=== PATIENT | male | born 1945 | race Caucasian/White ===

== ENCOUNTER 2017-05-03 11:13 | Inpatient (IN) | payer MEDICARE, BC ==
[~2017-05-03 11:13] MED LIST: ISOVUE-370 76%-LOCM 1 ML ONE
--- NOTE | 2017-05-03 11:59 | RAD ---
UPRIGHT PORTABLE CHEST ONE VIEW: History: 71-year-old male with weakness. FINDINGS: Inspiration is poor. Monitor leads overlie the chest. Heart size is within normal limits. The lungs a re clear. Atherosclerosis of the aorta. IMPRESSION: Atherosclerosis of the aorta. No confluent pneumonia, overt edema, or pleural effusion or other acute process. POS: [facility]
[2017-05-03 12:06] LABS: #Lymphocytes 0.6 thou/uL (1.20-3.40); #Monocytes 1.2 thou/uL (0.11-0.59); #Neutrophils 13.8 thou/uL (1.40-6.50); %Basophils 0.3 % (0.0-1.0); %Eosinophils 0.2 % (0.0-10.0); %Lymphocytes 3.7 % (21.0-51.0); %Monocytes 7.7 % (0.0-10.0); Hematocrit 42.7 % (42.0-52.0); Mean Platelet Volume 7.7 fL (7.4-10.4); Red Blood Cell (RBC) Count 4.39 mill/uL (4.70-6.10); White Blood Cell (WBC) Count 15.6 thou/uL (4.8-10.8)
[2017-05-03 12:12] LABS: Lactic Acid - Sepsis 1.9 mmol/L (0.5-2.2)
[2017-05-03 12:28] LABS: ALT (SGPT) Less than 7 U/L (8-55); AST (SGOT) 18 U/L (5-34); Alkaline Phosphatase 46 U/L (40-150); Anion Gap 13 mmol/L (10-20); BUN (Urea Nitrogen) 24 mg/dL (8.4-25.7); Bilirubin, Total 0.8 mg/dL (0.2-1.2); Calc. Creatinine Clearance 0 mL/min (70-130); Calcium 9.1 mg/dL (7.8-10.44); Carbon Dioxide 23 mmol/L (23-31); Chloride 103 mmol/L (98-107); Estimated GFR-MDRD 60; Globulin 2.7 g/dL (2.4-3.5); Protein, Total 6.6 g/dL (5.8-8.1)
[2017-05-03] MEDS ORDERED: Acetaminophen 500 MG TAB ONE (12:41)
--- NOTE | 2017-05-03 13:56 | CT ---
CONTRAST ENHANCED CT IMAGES OF THE FACIAL BONES: TECHNIQUE: Axial image are obtained with coronal and sagittal reconstructions. FINDINGS: Dental amalgam and hardware obscure some of the soft tissue and bony detail due to beam hardening. No obvious evidence of mandibular fractures or lesions is seen. No evidence of maxillary lesions is seen There does appear to be an area of lucency surrounding the right second maxillary incisor, claudia g its root. This may represent a possible right second incisor maxillary periapical dental abscess. The sinuses are well aerated. IMPRESSION: Area of lucency surrounding the root of the second right maxillary incisor. POS: [facility]
[2017-05-03 15:17] LABS: Bilirubin Small (Negative); Blood, Urine Negative (Negative); Glucose, Urine (Dipstick) Negative (Negative); Ketone, Urine Trace mg/dL (Negative); Nitrite Negative (Negative); Protein, Urine (Dipstick) Trace mg/dL (Neg-Trace); Urobilinogen 0.2 mg/dL (0.2-1.0)
--- NOTE | 2017-05-03 16:04 | HP ---
PRIMARY CARE PHYSICIAN: Sukhjinder Groves M.D. REASON FOR ADMISSION: Sepsis. HISTORY OF PRESENT ILLNESS: A 71-year-old male, who has underlying history of hypertension, diabetes type 2, dyslipidemia, Parkinson's disease, who presented to the emergency room for evaluation of hig h grade fever, chills, and generalized weakness. The patient reports that this morning he was schedu led for dental procedure in dentist's office, but patient appeared very weak and sick and that is why procedure was canceled, and he was directed to go to the emergency room for evaluation. In the emergency room, patient was having fever of 103.1, and he was hypotensive, and routine blood t ests showed leukocytosis with left shift. His chest x-ray was normal. His influenza screen is negat kim. He had CT facial bones, which showed a lucency around root of the second right maxillary inciso r. Patient denies any constipation, diarrhea. He denies any antibiotic exposure. He denies any abd ominal pain. He denies any constipation, diarrhea, melena, hematochezia. He denies any UTI symptoms . He denies any flu-like illness. He denies any sick exposure or recent travel. He denies any sore throat. Patient reports that this morning when he woke up at that time he was not feeling good. He fell down at home and after that he was having very difficulty standing up. He did not injure anywhere. The patient also reports that he has redness in the right lower extremity, which increases and decreases, but he denies any pain in the right lower extremity. He denies any calf tenderness. He denies any trauma. Patient is following neurologist and oncologists at [facility]. Initially, patient req uested to go to [facility], but because the patient's blood pressure was running low and that is why paramedics sent him to [facility]. I spoke with Dr. Del Fernandez, and he was not thinking that the dental abscess was contributing to his high grade fever. REVIEW OF SYSTEMS: The following complete review of systems was negative, unless otherwise mentioned in the HPI or below: Constitutional: Weight loss or gain, ability to conduct usual activities. Skin: Rash, itching. Eyes : Double vision, pain. ENT/Mouth: Nose bleeding, neck stiffness, pain, tenderness. Cardiovascular: Palpitations, dyspnea on exertion, orthopnea. Respiratory: Shortness of breath, wheezing, cough, hem optysis, fever or night sweats. Gastrointestinal: Poor appetite, abdominal pain, heartburn, nausea, vomiting, constipation, or diarrhea. Genitourinary: Urgency, frequency, dysuria, nocturia. Musculos keletal: Pain, swelling. Neurologic/Psychiatric: Anxiety, depression. Allergy/Immunologic: Skin reji h, bleeding tendency. Please see my HPI for pertinent positives and negatives. All other review of systems reviewed and ne gative except as mentioned in the HPI. ALLERGIES: No known drug allergies. CURRENT HOME MEDICATIONS: Aspirin 81 mg p.o. daily, carbidopa/levodopa 25/100 two tablets three time s daily, glipizide extended release 5 mg p.o. daily, lisinopril 10 mg p.o. daily, metformin 500 mg tw ice daily, Zocor 20 mg p.o. at bedtime, primidone 50 mg twice daily, trihexyphenidyl 2 mg twice daily , pramipexole 0.25 mg 3 times daily, propranolol LA 80 mg p.o. daily, Actos 30 mg p.o. daily, Michaelle 180 mg p.o. daily. PAST MEDICAL HISTORY: Diabetes type 2, hypertension, dyslipidemia, Parkinson's disease, morbid obesi ty, follicular lymphoma, on chemotherapy. PAST SURGICAL HISTORY: Cataract surgery from left eye, cholecystectomy, tonsillectomy. PAST PSYCHIATRIC HISTORY: Reviewed and negative. SOCIAL HISTORY: Patient is and lives at home with his . No history of tobacco, alcohol, or illicit drug abuse. FAMILY HISTORY: No strong family history of premature coronary artery disease, stroke, or cancer. EMERGENCY ROOM COURSE: Patient had blood culture and urine culture done, and the patient is given va ncomycin 1 gram, IV fluid 2 liter, and Tylenol 1 gram. PHYSICAL EXAMINATION: VITAL SIGNS: On arrival, blood pressure 107/59, pulse 74, respiratory rate 28, temperature 103.1, sa turation 96% on room air, weight 154.2 kilograms. GENERAL: Patient is currently alert, awake, no obvious acute distress. HEAD: Normocephalic, atraumatic. EYES: Pupils round, reactive to light. Extraocular muscles intact. ENT: Oropharynx within normal limits. Moist mucous membranes. No oral lesions. No pharyngeal eryt ba, no exudate. No JVD, no thyromegaly, no carotid bruit. LUNGS: Clear to auscultation, air entry reduced at the bases, but no rales, no wheezing, no rhonchi. CARDIAC: S1, S2 regular. No murmur, no gallop, no rub. ABDOMEN: Morbid obesity limiting examination, but no organomegaly, no mass, no suprapubic tenderness . BACK: Unremarkable, no CVA tenderness. EXTREMITIES: Upper extremity, passive movement of all joints are normal. Lower extremity, patient d oes have chronic venous stasis changes bilaterally, more worse on the right side. Erythema, warmth n oted on the right side. Good distal pulsation. NEUROLOGIC: The patient does have parkinsonian tremor, but patient is moving all four limbs. Speech normal. Nonfocal neurological examination. SKIN: No skin rash other than stasis dermatitis changes in right lower extremity. PSYCHIATRIC: Normal affect. ORAL CAVITY: The patient does have mild tenderness on the right maxilla on deep palpation, but no ob vious erythema noted or any drainage of pus noted. 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 CT faci al bone showing an area of lucency surrounding to the root of the right second maxillary incisor. Ch est x-ray showing no acute cardiopulmonary process. CBC: WBC 15.6, hemoglobin 14.3, platelet 165 wi th left shift. BMP: Sodium 134, potassium 4.7, chloride 103, carbon dioxide 23, anion gap 13, BUN 2 4, creatinine 1.19, glucose 149, calcium 9.1. Lactic acid 1.9. LFT: AST 18, ALT less than 7, alkaline phosphatase 46, albumin 3.9. ASSESSMENT AND PLAN: 1. Sepsis. The patient meets sepsis criteria with leukocytosis with left shift, high grade fever, a nd relative hypotension. Source of infection is unclear exactly but suspecting from 3 different etio logy. One is a possibility of dental abscess based on CT scan finding as well as another possibility is cellulitis of right lower extremity, and third possibility is possible urinary tract infection. At this point, CT of facial bones showed area of lucency surrounding the root of the second right max illary incisor, and I spoke with Dr. Del Fernandez, who is a dentist, was going to do procedure on h im, and he was not thinking that this patient's dental process is causing this high grade fever, and he prefers surgical intervention in his office after discharge. The patient will be given vancomycin and Zosyn, that should cover dental abscess as well as cellulitis, and we are sending urine culture and urinalysis. We will follow up on all culture result, his influenza screen is negative. We will also continue slow IV fluid and will avoid antihypertensive medication. We will closely monitor on m edical floor and will follow up on culture result and consider discharging him home in the next day o r two. 2. Dental abscess. The patient is already on vancomycin and Zosyn, and I spoke with Dr. Del yap, who prefers surgery to be done in his office after stabilization. 3. Right lower extremity cellulitis. Patient is already on vancomycin and Zosyn. We will keep lowe r extremity elevated. Most likely, he also has part of stasis dermatitis, but underlying cellulitis is also possible given high grade fever and sepsis. 4. Morbid obesity. Dietary education given, weight loss education given. 5. Generalized weakness, acute. The patient will need PT, OT evaluation, and if needed, we will con tutoring clinician discharge planning with the rehab or skilled if needed only. At home, the patient is able to a mbulate by himself, and he is able to do all routine activities by himself up until today. 6. Parkinson's disease. I will continue patient's carbidopa/levodopa, trihexyphenidyl, pramipexole, Inderal LA as per home dosage. We will also continue primidone 150 mg twice daily. 7. Diabetes type 2. We will continue glipizide XL 5 mg and metformin 500 mg twice daily along with insulin as per sliding scale protocol, and diabetic diet will be given. 8. Dyslipidemia. We will continue Zocor 20 mg p.o. at bedtime. 9. History of hypertension, but currently low blood pressure and that is why we will hold on antihyp ertensive medication. We will resume lisinopril and Inderal LA when blood pressure improves. 10. Deep venous thrombosis prophylaxis. Lovenox 40 mg subcu daily. 11. Gastrointestinal prophylaxis, Pepcid 20 mg p.o. b.i.d. 12. Code status: The patient is FULL CODE. The patient's is surrogate decision maker. Disposition plan based on clinical course. At this point, we are expecting [facility] mid[facility]. Plan of care discussed with the patient and family member at bedside in the emergency room. Condition is stable.
[2017-05-03 16:51] VITALS: BMI 43.5
[2017-05-03] MEDS ORDERED: Ondansetron HCl/PF 4 MG/2 ML Vial IVP PRN ×2 (17:00→17:05)
[2017-05-03] MEDS ORDERED: Ondansetron ODT 4 MG TAB SL PRN (17:00)
[2017-05-03] MEDS ORDERED: Acetaminophen 325 MG TAB PO PRN ×2 (17:00→17:05)
[2017-05-03] MEDS ORDERED: Zolpidem Tartrate 5 MG TAB PO PRN (17:05)
[2017-05-03] MEDS ORDERED: Ondansetron ODT 4 MG TAB PO PRN (17:05)
[2017-05-03] MEDS ORDERED: HYDROcodone/Acetaminophen 5/325 mg Tablet PO PRN (17:05)
[2017-05-03] MEDS ORDERED: Senokot 8.6 MG TAB PO PRN (17:05)
[2017-05-03] MEDS ORDERED: Loratadine 10 MG TAB PO PRN (17:05)
[2017-05-03] MEDS ORDERED: HumaLOG 300 UNITS/3 ML VIAL SC PRN ×2 (17:05)
[2017-05-03] MEDS ORDERED: hydrALAZINE 20 MG/ML VIAL SLOW IVP PRN (17:05)
[2017-05-03] MEDS ORDERED: Artificial Tear Sol 15 ML BOT EA EYE PRN (17:05)
[2017-05-03] MEDS ORDERED: Loperamide HCl 2 MG CAP PO PRN (17:05)
[2017-05-03] MEDS ORDERED: Sodium Chloride 0.65% Nasal 44 ML BOT EA NARE PRN (17:05)
[2017-05-03] MEDS ORDERED: Chloraseptic Spray 180 ml Bottle PO PRN (17:05)
[2017-05-03] MEDS ORDERED: Milk Of Magnesia 30 ML UDCUP PO PRN (17:05)
[2017-05-03] MEDS ORDERED: Dextrose 50% Abboject 50 ML SYRINGE SLOW IVP PRN (17:05)
[2017-05-03] MEDS ORDERED: Diabetic Tussin 200 MG/10 ML UDCUP PO PRN (17:05)
[2017-05-03] MEDS ORDERED: Dextrose 5% in Water 1,000 ML IV PRN (17:05)
[2017-05-03] MEDS ORDERED: Eucerin (Mineral Oil/Petrolatum,White) 30 gm Jar TOP PRN (17:05)
[2017-05-03] MEDS ORDERED: Mag-Al 1200 mg/1200 mg/30 ML UDCUP PO PRN (17:05)
[2017-05-03] MEDS ORDERED: metFORMIN 500 MG TAB PO SCH (18:00)
[2017-05-03] MEDS: Sodium Chloride 0.9% 1,000 ML IV SCH (18:30)
[2017-05-03] MEDS: Simvastatin 20 MG TAB PO SCH (20:24)
[2017-05-03] MEDS: Primidone 50 MG TAB PO SCH (20:24)
[2017-05-03] MEDS: Famotidine 20 MG TAB PO SCH (20:24)
[2017-05-03] MEDS: Pramipexole Di-HCl 0.125 MG TAB PO SCH (20:24)
[2017-05-03] MEDS: Carbidopa/Levodopa 25-100 mg Tablet PO SCH (20:24)
[2017-05-03] MEDS: Piperacillin/Tazobactam 4.5 GM in Sodium Chloride 0.9% 100 ML IVPB SCH (22:04)
[2017-05-04] MEDS: Piperacillin/Tazobactam 4.5 GM in Sodium Chloride 0.9% 100 ML IVPB SCH ×4 (01:57→19:34)
[2017-05-04 05:16] LABS: #Monocytes 0.9 thou/uL (0.11-0.59); #Neutrophils 6.9 thou/uL (1.40-6.50); %Basophils 0.3 % (0.0-1.0); %Eosinophils 0.2 % (0.0-10.0); %Lymphocytes 11.6 % (21.0-51.0); %Monocytes 10.6 % (0.0-10.0); Hematocrit 38.2 % (42.0-52.0); Red Blood Cell (RBC) Count 3.89 mill/uL (4.70-6.10); White Blood Cell (WBC) Count 8.9 thou/uL (4.8-10.8)
[2017-05-04 05:58] LABS: ALT (SGPT) Less than 7 U/L (8-55); AST (SGOT) 17 U/L (5-34); Alkaline Phosphatase 33 U/L (40-150); Anion Gap 11 mmol/L (10-20); BUN (Urea Nitrogen) 23 mg/dL (8.4-25.7); Bilirubin, Total 0.8 mg/dL (0.2-1.2); Calc. Creatinine Clearance 148 mL/min (70-130); Calcium 8.4 mg/dL (7.8-10.44); Carbon Dioxide 22 mmol/L (23-31); Chloride 105 mmol/L (98-107); Estimated GFR-MDRD 75; Globulin 2.3 g/dL (2.4-3.5); Protein, Total 5.7 g/dL (5.8-8.1)
[2017-05-04] MEDS: Sodium Chloride 0.9% 1,000 ML IV SCH ×2 (06:23→13:50)
[2017-05-04] MEDS: Enoxaparin Sodium 40 MG/0.4 ML SYRINGE SC SCH (07:22)
[2017-05-04] MEDS: Pioglitazone HCl 15 MG TAB PO SCH (07:23)
[2017-05-04] MEDS: Primidone 50 MG TAB PO SCH ×2 (07:24→08:29)
[2017-05-04] MEDS: Pramipexole Di-HCl 0.125 MG TAB PO SCH (07:24)
[2017-05-04] MEDS: Carbidopa/Levodopa 25-100 mg Tablet PO SCH ×2 (07:24→08:29)
[2017-05-04] MEDS: Famotidine 20 MG TAB PO SCH ×2 (07:25→19:35)
[2017-05-04] MEDS: Saccharomyces boulardii 250 MG CAP PO SCH (07:25)
[2017-05-04] MEDS: metFORMIN 500 MG TAB PO SCH ×2 (07:25→17:33)
[2017-05-04] MEDS ORDERED: SODIUM FLUORIDE PO SCH (09:00)
--- NOTE | 2017-05-04 11:11 | PDOC.PN ---
- Subjective Encounter Start Date: 05/04/17 Encounter Start Time: 07:45 -: old records requested/rev Patient seen and examined. No new complaints. No overnight events, no fever - Objective Resuscitation Status: Resuscitation Status FULL:Full Resuscitation MAR Reviewed: Yes Vital Signs & Weight: Vital Signs (12 hours) Temp Pulse Resp BP Pulse Ox 05/04/17 08:00 98.7 F 59 L 22 H 112/62 98 05/04/17 02:00 98.7 F 65 20 117/46 L Weight Weight 339 lb 8.19 oz I&O: 05/03/17 05/04/17 05/05/17 06:59 06:59 06:59 Intake Total 2320 360 Balance 2320 360 Result Diagrams: 05/04/17 04:48 05/04/17 04:48 Additional Labs: Accuchecks 05/04/17 05/03/17 06:16 21:02 POC Glucose 84 95 Phys Exam - Physical Examination Constitutional: NAD HEENT: PERRLA, moist MMs, sclera anicteric Neck: no JVD, supple Respiratory: no wheezing, no rales, no rhonchi Cardiovascular: RRR, no significant murmur, no rub Gastrointestinal: soft, non-tender, no distention, positive bowel sounds obesity+ Musculoskeletal: pulses present right LE cellulitis Neurological: non-focal, normal sensation Psychiatric: normal affect, A&O x 3 Skin: no rash, normal turgor Dx/Plan (1) Cellulitis of right lower extremity Code(s): L03.115 - CELLULITIS OF RIGHT LOWER LIMB Status: Acute (2) Dental abscess Code(s): K04.7 - PERIAPICAL ABSCESS WITHOUT SINUS Status: Acute (3) Sepsis Code(s): A41.9 - SEPSIS, UNSPECIFIED ORGANISM Status: Acute (4) Diabetes type 2, controlled Code(s): E11.9 - TYPE 2 DIABETES MELLITUS WITHOUT COMPLICATIONS Status: Chronic (5) Dyslipidemia Code(s): E78.5 - HYPERLIPIDEMIA, UNSPECIFIED Status: Chronic (6) Hypertension Code(s): I10 - ESSENTIAL (PRIMARY) HYPERTENSION Status: Chronic (7) Morbid obesity with BMI of 40.0-44.9, adult Code(s): E66.01 - MORBID (SEVERE) OBESITY DUE TO EXCESS CALORIES; Z68.41 - BODY MASS INDEX (BMI) 40.0-44.9, ADULT Status: Chronic (8) Parkinson disease Code(s): G20 - PARKINSON'S DISEASE Status: Chronic - Plan cont current plan of care, continue antibiotics, PT/OT * continue vancomycin and zosyn * continue IVF * hold BP meds today * follow culture today * if afebrile and culture negative and doing ok with PT, will consider discharge in next 24-48 hours * medication reviewed as below * symptomatic treatment. Review of Systems - Review of Systems Constitutional: Weakness. negative: Fever, Chills, Sweats, Malaise, Other ENT: negative: Ear Pain, Ear Discharge, Nose Pain, Nose Discharge, Nose Congestion, Mouth Pain, Mouth Swelling, Throat Pain, Throat Swelling, Other Respiratory: negative: Cough, Dry, Shortness of Breath, Hemoptysis, SOB with Excertion, Pleuritic Pain, Sputum, Wheezing Cardiovascular: negative: Chest Pain, Palpitations, Orthopnea, Paroxysmal Noc. Dyspnea, Edema, Light Headedness, Other Gastrointestinal: negative: Nausea, Vomiting, Abdominal Pain, Diarrhea, Constipation, Melena, Hematochezia, Other Genitourinary: negative: Dysuria, Frequency, Incontinence, Hematuria, Retention , Other Musculoskeletal: negative: Neck Pain, Shoulder Pain, Arm Pain, Back Pain, Hand Pain, Leg Pain, Foot Pain, Other Skin: negative: Rash, Lesions, Job, Bruising, Other - Medications/Allergies Allergies/Adverse Reactions: Allergies Allergy/AdvReac Type Severity Reaction Status Date / Time No Known Drug Allergies Allergy Verified 05/03/17 17:10 Medications: Current Medications Acetaminophen (Tylenol) 650 mg PO Q4H PRN PRN Reason: Headache/Fever or Pain Hydrocodone Bitart/Acetaminophen ([place] 5/325) 1 tab PO Q4H PRN PRN Reason: Moderate Pain (4-6) Al Hydroxide/Mg Hydroxide (Maalox) 30 ml PO Q6H PRN PRN Reason: Heartburn or Indigestion Artificial Tears (Tears Renewed 15ml Bottle) 0 drop EA EYE PRN PRN PRN Reason: Dry Eyes Aspirin (Aspirin Chewable) 81 mg PO DAILY [facility] Last Admin: 05/04/17 07:25 Dose: 81 mg Carbidopa/Levodopa (Sinemet 25-100) 1 tab PO DAILY [facility] Last Admin: 05/04/17 08:29 Dose: Not Given Dextrose/Water (Dextrose 50%) 25 gm SLOW IVP PRN PRN PRN Reason: Hypoglycemia Enoxaparin Sodium (Lovenox) 40 mg SC 0900 [facility] Last Admin: 05/04/17 07:22 Dose: 40 mg Famotidine (Pepcid) 20 mg PO BID [facility] Last Admin: 05/04/17 07:25 Dose: 20 mg Glipizide (Glucotrol Xl) 5 mg PO QA[facility] Last Admin: 05/04/17 07:25 Dose: 5 mg Glucagon (Glucagon) 1 mg IM PRN PRN PRN Reason: Hypoglycemia Guaifenesin (Robitussin Sf) 200 mg PO Q4H PRN PRN Reason: Cough Hydralazine HCl (Apresoline) 10 mg SLOW IVP Q4H PRN PRN Reason: Systolic BP > 180 Dextrose/Water (D5w) 1,000 mls @ 0 mls/hr IV .Q0M PRN; As Directed PRN Reason: Hypoglycemia Sodium Chloride (Normal Saline 0.9%) 1,000 mls @ 100 mls/hr IV .Q10H [facility] Last Admin: 05/04/17 06:23 Dose: Not Given Piperacillin Sod/Tazobactam (Sod 4.5 gm/ Sodium Chloride) 100 mls @ 200 mls/hr IVPB 0200,0800,1400,2000 [facility] Last Admin: 05/04/17 07:21 Dose: 100 mls Vancomycin HCl 2 gm/ Sodium (Chloride) 500 mls @ 250 mls/hr IVPB 0800,2000 [facility] Last Admin: 05/04/17 08:30 Dose: 500 mls Insulin Human Lispro (Humalog) 0 units SC .MODERATE SLIDING SC PRN PRN Reason: Moderate Correctional Scale Insulin Human Lispro (Humalog) 0 units SC .BEDTIME SLIDING SC PRN PRN Reason: Bedtime Correctional Scale Loperamide HCl (Imodium) 2 mg PO PRN PRN PRN Reason: Diarrhea/Loose Stools Loratadine (Claritin) 10 mg PO DAILYPRN PRN PRN Reason: Sinus Symptoms Magnesium Hydroxide (Milk Of Magnesium) 30 ml PO DAILYPRN PRN PRN Reason: Constipation Metformin HCl (Glucophage) 500 mg PO BID-[facility] Last Admin: 05/04/17 07:25 Dose: 500 mg Mineral Oil/White Petrolatum (Eucerin Cream) 0 gm TOP BIDPRN PRN PRN Reason: Dry Skin Miscellaneous Medication (Pharmacy To Dose) 1 each IVPB PRN PRN PRN Reason: Pharmacy to dose Ondansetron HCl (Zofran Odt) 4 mg PO Q6H PRN PRN Reason: Nausea/Vomiting Ondansetron HCl (Zofran) 4 mg IVP Q6H PRN PRN Reason: Nausea/Vomiting [Prevident Paste] 1 (Applic) 0 each PO BID [facility] Phenol (Chloraseptic [place] 180 Ml Bot) 0 ml PO PRN PRN PRN Reason: Sore Throat Pioglitazone HCl (Actos) 30 mg PO DAILY [facility] Last Admin: 05/04/17 07:23 Dose: 30 mg Primidone (Mysoline) 50 mg PO DAILY [facility] Last Admin: 05/04/17 08:29 Dose: Not Given Saccharomyces Boulardii (Florastor) 250 mg PO DAILY [facility] Last Admin: 05/04/17 07:25 Dose: 250 mg Senna (Senokot) 2 tab PO HSPRN PRN PRN Reason: Constipation Simvastatin (Zocor) 20 mg PO [facility] Last Admin: 05/03/17 20:24 Dose: 20 mg Sodium Chloride ([place] Nasal [place] 0.65%) 0 ml EA NARE QIDPRN PRN PRN Reason: Nasal Congestion Zolpidem Tartrate (Ambien) 5 mg PO HSPRN PRN PRN Reason: Insomnia
[2017-05-04] MEDS: Simvastatin 20 MG TAB PO SCH (19:35)
[2017-05-05] MEDS: Piperacillin/Tazobactam 4.5 GM in Sodium Chloride 0.9% 100 ML IVPB SCH ×4 (02:50→20:55)
[2017-05-05] MEDS: Saccharomyces boulardii 250 MG CAP PO SCH (08:31)
[2017-05-05] MEDS: Carbidopa/Levodopa 25-100 mg Tablet PO SCH ×3 (08:31→20:53)
[2017-05-05] MEDS: Primidone 50 MG TAB PO SCH (08:31)
[2017-05-05] MEDS: Famotidine 20 MG TAB PO SCH ×2 (08:31→20:53)
[2017-05-05] MEDS: Pioglitazone HCl 15 MG TAB PO SCH (08:32)
[2017-05-05] MEDS: metFORMIN 500 MG TAB PO SCH (08:32)
[2017-05-05] MEDS: Enoxaparin Sodium 40 MG/0.4 ML SYRINGE SC SCH (08:33)
[2017-05-05] MEDS: Sodium Chloride 0.9% 1,000 ML IV SCH ×2 (08:38→17:18)
--- NOTE | 2017-05-05 09:30 | PDOC.PN ---
- Subjective Encounter Start Date: 05/05/17 Encounter Start Time: 08:45 Patient seen and examined. No new complaints. No overnight events - Objective Resuscitation Status: Resuscitation Status FULL:Full Resuscitation MAR Reviewed: Yes Vital Signs & Weight: Vital Signs (12 hours) Temp Pulse Resp BP Pulse Ox 05/05/17 08:00 98 F 58 L 20 147/77 H 100 05/05/17 07:50 98 F 59 L 16 144/74 H 99 05/05/17 06:25 97.8 F 65 20 152/83 H 96 05/05/17 01:11 98.7 F 61 20 136/79 97 05/04/17 22:00 98.5 F 64 18 144/76 H 99 Weight Weight 339 lb 8.19 oz I&O: 05/04/17 05/05/17 05/06/17 06:59 06:59 06:59 Intake Total 2320 1960 Balance 2320 1960 Result Diagrams: 05/04/17 04:48 05/04/17 04:48 Additional Labs: Accuchecks 05/05/17 05/04/17 05/04/17 05:36 20:09 16:25 POC Glucose 73 76 70 05/04/17 11:00 POC Glucose 98 Phys Exam - Physical Examination Constitutional: NAD HEENT: PERRLA, moist MMs, sclera anicteric Neck: no JVD, supple Respiratory: no wheezing, no rales, no rhonchi Cardiovascular: RRR, no significant murmur, no rub Gastrointestinal: soft, non-tender, no distention, positive bowel sounds Musculoskeletal: no edema, pulses present Neurological: non-focal, normal sensation Lymphatic: no nodes Psychiatric: normal affect, A&O x 3 Skin: no rash, normal turgor Dx/Plan (1) Cellulitis of right lower extremity Code(s): L03.115 - CELLULITIS OF RIGHT LOWER LIMB Status: Acute (2) Dental abscess Code(s): K04.7 - PERIAPICAL ABSCESS WITHOUT SINUS Status: Acute (3) Sepsis Code(s): A41.9 - SEPSIS, UNSPECIFIED ORGANISM Status: Acute (4) Diabetes type 2, controlled Code(s): E11.9 - TYPE 2 DIABETES MELLITUS WITHOUT COMPLICATIONS Status: Chronic (5) Dyslipidemia Code(s): E78.5 - HYPERLIPIDEMIA, UNSPECIFIED Status: Chronic (6) Hypertension Code(s): I10 - ESSENTIAL (PRIMARY) HYPERTENSION Status: Chronic (7) Morbid obesity with BMI of 40.0-44.9, adult Code(s): E66.01 - MORBID (SEVERE) OBESITY DUE TO EXCESS CALORIES; Z68.41 - BODY MASS INDEX (BMI) 40.0-44.9, ADULT Status: Chronic (8) Parkinson disease Code(s): G20 - PARKINSON'S DISEASE Status: Chronic - Plan cont current plan of care, continue antibiotics, PT/OT * continue current iv antibiotics vancomcyin and zosyn * medication reviewed as below * symptomatic treatment. Review of Systems - Review of Systems ENT: negative: Ear Pain, Ear Discharge, Nose Pain, Nose Discharge, Nose Congestion, Mouth Pain, Mouth Swelling, Throat Pain, Throat Swelling, Other Respiratory: negative: Cough, Dry, Shortness of Breath, Hemoptysis, SOB with Excertion, Pleuritic Pain, Sputum, Wheezing Cardiovascular: negative: Chest Pain, Palpitations, Orthopnea, Paroxysmal Noc. Dyspnea, Edema, Light Headedness, Other Gastrointestinal: negative: Nausea, Vomiting, Abdominal Pain, Diarrhea, Constipation, Melena, Hematochezia, Other Genitourinary: negative: Dysuria, Frequency, Incontinence, Hematuria, Retention , Other Musculoskeletal: negative: Neck Pain, Shoulder Pain, Arm Pain, Back Pain, Hand Pain, Leg Pain, Foot Pain, Other Skin: negative: Rash, Lesions, Job, Bruising, Other - Medications/Allergies Allergies/Adverse Reactions: Allergies Allergy/AdvReac Type Severity Reaction Status Date / Time No Known Drug Allergies Allergy Verified 05/03/17 17:10 Medications: Current Medications Acetaminophen (Tylenol) 650 mg PO Q4H PRN PRN Reason: Headache/Fever or Pain Hydrocodone Bitart/Acetaminophen ([place] 5/325) 1 tab PO Q4H PRN PRN Reason: Moderate Pain (4-6) Al Hydroxide/Mg Hydroxide (Maalox) 30 ml PO Q6H PRN PRN Reason: Heartburn or Indigestion Artificial Tears (Tears Renewed 15ml Bottle) 0 drop EA EYE PRN PRN PRN Reason: Dry Eyes Aspirin (Aspirin Chewable) 81 mg PO DAILY [facility] Last Admin: 05/05/17 08:31 Dose: 81 mg Carbidopa/Levodopa (Sinemet 25-100) 1 tab PO DAILY [facility] Last Admin: 05/05/17 08:31 Dose: 1 tab Dextrose/Water (Dextrose 50%) 25 gm SLOW IVP PRN PRN PRN Reason: Hypoglycemia Enoxaparin Sodium (Lovenox) 40 mg SC 0900 [facility] Last Admin: 05/05/17 08:33 Dose: 40 mg Famotidine (Pepcid) 20 mg PO BID [facility] Last Admin: 05/05/17 08:31 Dose: 20 mg Glipizide (Glucotrol Xl) 5 mg PO QAM-[facility] Last Admin: 05/05/17 08:32 Dose: 5 mg Glucagon (Glucagon) 1 mg IM PRN PRN PRN Reason: Hypoglycemia Guaifenesin (Robitussin Sf) 200 mg PO Q4H PRN PRN Reason: Cough Hydralazine HCl (Apresoline) 10 mg SLOW IVP Q4H PRN PRN Reason: Systolic BP > 180 Dextrose/Water (D5w) 1,000 mls @ 0 mls/hr IV .Q0M PRN; As Directed PRN Reason: Hypoglycemia Sodium Chloride (Normal Saline 0.9%) 1,000 mls @ 100 mls/hr IV .Q10H [facility] Last Admin: 05/05/17 08:38 Dose: 1,000 mls Piperacillin Sod/Tazobactam (Sod 4.5 gm/ Sodium Chloride) 100 mls @ 200 mls/hr IVPB 0200,0800,1400,2000 [facility] Last Admin: 05/05/17 08:33 Dose: 100 mls Vancomycin HCl 1.5 gm/ Sodium (Chloride) 300 mls @ 200 mls/hr IVPB 1000,2200 [facility] Insulin Human Lispro (Humalog) 0 units SC .MODERATE SLIDING SC PRN PRN Reason: Moderate Correctional Scale Insulin Human Lispro (Humalog) 0 units SC .BEDTIME SLIDING SC PRN PRN Reason: Bedtime Correctional Scale Loperamide HCl (Imodium) 2 mg PO PRN PRN PRN Reason: Diarrhea/Loose Stools Loratadine (Claritin) 10 mg PO DAILYPRN PRN PRN Reason: Sinus Symptoms Magnesium Hydroxide (Milk Of Magnesium) 30 ml PO DAILYPRN PRN PRN Reason: Constipation Metformin HCl (Glucophage) 500 mg PO BID-[facility] Last Admin: 05/05/17 08:32 Dose: 500 mg Mineral Oil/White Petrolatum (Eucerin Cream) 0 gm TOP BIDPRN PRN PRN Reason: Dry Skin Miscellaneous Medication (Pharmacy To Dose) 1 each IVPB PRN PRN PRN Reason: Pharmacy to dose Ondansetron HCl (Zofran Odt) 4 mg PO Q6H PRN PRN Reason: Nausea/Vomiting Ondansetron HCl (Zofran) 4 mg IVP Q6H PRN PRN Reason: Nausea/Vomiting [Prevident Paste] 1 (Applic) 0 each PO BID [facility] Phenol (Chloraseptic [place] 180 Ml Bot) 0 ml PO PRN PRN PRN Reason: Sore Throat Pioglitazone HCl (Actos) 30 mg PO DAILY [facility] Last Admin: 05/05/17 08:32 Dose: 30 mg Primidone (Mysoline) 50 mg PO DAILY [facility] Last Admin: 05/05/17 08:31 Dose: 50 mg Saccharomyces Boulardii (Florastor) 250 mg PO DAILY [facility] Last Admin: 05/05/17 08:31 Dose: 250 mg Senna (Senokot) 2 tab PO HSPRN PRN PRN Reason: Constipation Simvastatin (Zocor) 20 mg PO HS [facility] Last Admin: 05/04/17 19:35 Dose: 20 mg Sodium Chloride ([place] Nasal [place] 0.65%) 0 ml EA NARE QIDPRN PRN PRN Reason: Nasal Congestion Zolpidem Tartrate (Ambien) 5 mg PO HSPRN PRN PRN Reason: Insomnia
[2017-05-05] MEDS ORDERED: Loratadine 10 MG TAB PO PRN (12:00)
[2017-05-05] MEDS: Vancomycin HCl 1.5 GM in Sodium Chloride 0.9% 250 ML 300 ML IVPB SCH ×2 (12:41→20:56)
[2017-05-05] MEDS: Pramipexole Di-HCl 0.25 MG TAB PO SCH ×2 (15:51→20:54)
[2017-05-05] MEDS: Atorvastatin Calcium 10 MG TAB PO SCH (20:53)
[2017-05-06] MEDS: Piperacillin/Tazobactam 4.5 GM in Sodium Chloride 0.9% 100 ML IVPB SCH ×4 (01:48→22:08)
[2017-05-06] MEDS: Saccharomyces boulardii 250 MG CAP PO SCH (08:15)
[2017-05-06] MEDS: Carbidopa/Levodopa 25-100 mg Tablet PO SCH ×3 (08:16→22:06)
[2017-05-06] MEDS: Pramipexole Di-HCl 0.25 MG TAB PO SCH ×3 (08:20→22:17)
[2017-05-06] MEDS: Famotidine 20 MG TAB PO SCH ×2 (08:21→22:06)
[2017-05-06] MEDS: metFORMIN 500 MG TAB PO SCH ×2 (08:21→16:06)
[2017-05-06] MEDS: Aspirin 81 mg Enteric Coated Tablet PO SCH (08:22)
[2017-05-06] MEDS: Lisinopril 10 MG TAB PO SCH (08:22)
[2017-05-06] MEDS: Enoxaparin Sodium 40 MG/0.4 ML SYRINGE SC SCH (08:22)
[2017-05-06] MEDS: Pioglitazone HCl 15 MG TAB PO SCH (08:25)
--- NOTE | 2017-05-06 09:19 | PDOC.PN ---
- Subjective Encounter Start Date: 05/06/17 Encounter Start Time: 08:10 Patient seen and examined. No new complaints. No overnight events - Objective Resuscitation Status: Resuscitation Status FULL:Full Resuscitation MAR Reviewed: Yes Vital Signs & Weight: Vital Signs (12 hours) Temp Pulse Resp BP BP Pulse Ox 05/06/17 08:00 97.9 F 61 16 05/06/17 07:51 97.9 F 61 16 149/80 H 96 05/06/17 03:58 97.6 F 82 20 144/76 H 97 Weight Weight 339 lb 8.19 oz I&O: 05/05/17 05/06/17 05/07/17 06:59 06:59 06:59 Intake Total 1960 850 Balance 1960 850 Result Diagrams: 05/04/17 04:48 05/04/17 04:48 Additional Labs: Accuchecks 05/06/17 05/05/17 05/05/17 04:44 20:02 17:12 POC Glucose 96 112 H 109 05/05/17 11:49 POC Glucose 115 H Phys Exam - Physical Examination Constitutional: NAD HEENT: PERRLA, moist MMs, sclera anicteric Neck: no JVD, supple Respiratory: no wheezing, no rales, no rhonchi Cardiovascular: RRR, no significant murmur, no rub Gastrointestinal: soft, non-tender, no distention, positive bowel sounds obesity+ right lower extrimity cellulitis improving Neurological: non-focal, normal sensation, moves all 4 limbs parkinson tremor Lymphatic: no nodes Psychiatric: normal affect, A&O x 3 Skin: no rash, normal turgor Dx/Plan (1) Cellulitis of right lower extremity Code(s): L03.115 - CELLULITIS OF RIGHT LOWER LIMB Status: Acute (2) Dental abscess Code(s): K04.7 - PERIAPICAL ABSCESS WITHOUT SINUS Status: Acute (3) Sepsis Code(s): A41.9 - SEPSIS, UNSPECIFIED ORGANISM Status: Acute (4) Diabetes type 2, controlled Code(s): E11.9 - TYPE 2 DIABETES MELLITUS WITHOUT COMPLICATIONS Status: Chronic (5) Dyslipidemia Code(s): E78.5 - HYPERLIPIDEMIA, UNSPECIFIED Status: Chronic (6) Hypertension Code(s): I10 - ESSENTIAL (PRIMARY) HYPERTENSION Status: Chronic (7) Morbid obesity with BMI of 40.0-44.9, adult Code(s): E66.01 - MORBID (SEVERE) OBESITY DUE TO EXCESS CALORIES; Z68.41 - BODY MASS INDEX (BMI) 40.0-44.9, ADULT Status: Chronic (8) Parkinson disease Code(s): G20 - PARKINSON'S DISEASE Status: Chronic - Plan cont current plan of care, continue antibiotics * continue vancomycin and zosyn * cellulitis improving * advised to follow vein clinic on discharge * advised to keep leg elevated and use elastic stockings * medication reviewed as below * symptomatic treatment. Review of Systems - Review of Systems ENT: negative: Ear Pain, Ear Discharge, Nose Pain, Nose Discharge, Nose Congestion, Mouth Pain, Mouth Swelling, Throat Pain, Throat Swelling, Other Respiratory: negative: Cough, Dry, Shortness of Breath, Hemoptysis, SOB with Excertion, Pleuritic Pain, Sputum, Wheezing Cardiovascular: negative: Chest Pain, Palpitations, Orthopnea, Paroxysmal Noc. Dyspnea, Edema, Light Headedness, Other Gastrointestinal: negative: Nausea, Vomiting, Abdominal Pain, Diarrhea, Constipation, Melena, Hematochezia, Other Genitourinary: negative: Dysuria, Frequency, Incontinence, Hematuria, Retention , Other Musculoskeletal: negative: Neck Pain, Shoulder Pain, Arm Pain, Back Pain, Hand Pain, Leg Pain, Foot Pain, Other Skin: negative: Rash, Lesions, Job, Bruising, Other - Medications/Allergies Allergies/Adverse Reactions: Allergies Allergy/AdvReac Type Severity Reaction Status Date / Time No Known Drug Allergies Allergy Verified 05/03/17 17:10 Medications: Current Medications Acetaminophen (Tylenol) 650 mg PO Q4H PRN PRN Reason: Headache/Fever or Pain Hydrocodone Bitart/Acetaminophen ([place] 5/325) 1 tab PO Q4H PRN PRN Reason: Moderate Pain (4-6) Al Hydroxide/Mg Hydroxide (Maalox) 30 ml PO Q6H PRN PRN Reason: Heartburn or Indigestion Artificial Tears (Tears Renewed 15ml Bottle) 0 drop EA EYE PRN PRN PRN Reason: Dry Eyes Aspirin (Ecotrin) 81 mg PO DAILY [facility] Last Admin: 05/06/17 08:22 Dose: 81 mg Atorvastatin Calcium (Lipitor) 10 mg PO HS [facility] Last Admin: 05/05/17 20:53 Dose: 10 mg Carbidopa/Levodopa (Sinemet 25-100) 2 tab PO TID [facility] Last Admin: 05/06/17 08:16 Dose: 2 tab Dextrose/Water (Dextrose 50%) 25 gm SLOW IVP PRN PRN PRN Reason: Hypoglycemia Enoxaparin Sodium (Lovenox) 40 mg SC 0900 [facility] Last Admin: 05/06/17 08:22 Dose: 40 mg Famotidine (Pepcid) 20 mg PO BID [facility] Last Admin: 05/06/17 08:21 Dose: 20 mg Glipizide (Glucotrol Xl) 5 mg PO QAM-[facility] Last Admin: 05/06/17 08:24 Dose: 5 mg Glucagon (Glucagon) 1 mg IM PRN PRN PRN Reason: Hypoglycemia Guaifenesin (Robitussin Sf) 200 mg PO Q4H PRN PRN Reason: Cough Hydralazine HCl (Apresoline) 10 mg SLOW IVP Q4H PRN PRN Reason: Systolic BP > 180 Dextrose/Water (D5w) 1,000 mls @ 0 mls/hr IV .Q0M PRN; As Directed PRN Reason: Hypoglycemia Piperacillin Sod/Tazobactam (Sod 4.5 gm/ Sodium Chloride) 100 mls @ 200 mls/hr IVPB 0200,0800,1400,2000 [facility] Last Admin: 05/06/17 01:48 Dose: 100 mls Vancomycin HCl 1.5 gm/ Sodium (Chloride) 300 mls @ 200 mls/hr IVPB 1000,2200 [facility] Last Admin: 05/05/17 20:56 Dose: 300 mls Insulin Human Lispro (Humalog) 0 units SC .MODERATE SLIDING SC PRN PRN Reason: Moderate Correctional Scale Insulin Human Lispro (Humalog) 0 units SC .BEDTIME SLIDING SC PRN PRN Reason: Bedtime Correctional Scale Lisinopril (Zestril) 10 mg PO DAILY [facility] Last Admin: 05/06/17 08:22 Dose: 10 mg Loperamide HCl (Imodium) 2 mg PO PRN PRN PRN Reason: Diarrhea/Loose Stools Loratadine (Claritin) 10 mg PO DAILYPRN PRN PRN Reason: Sinus Symptoms Loratadine (Claritin) 10 mg PO DAILYPRN PRN PRN Reason: Allergies Magnesium Hydroxide (Milk Of Magnesium) 30 ml PO DAILYPRN PRN PRN Reason: Constipation Metformin HCl (Glucophage) 500 mg PO BID-[facility] Last Admin: 05/06/17 08:21 Dose: 500 mg Mineral Oil/White Petrolatum (Eucerin Cream) 0 gm TOP BIDPRN PRN PRN Reason: Dry Skin Miscellaneous Medication (Pharmacy To Dose) 1 each IVPB PRN PRN PRN Reason: Pharmacy to dose Ondansetron HCl (Zofran Odt) 4 mg PO Q6H PRN PRN Reason: Nausea/Vomiting Ondansetron HCl (Zofran) 4 mg IVP Q6H PRN PRN Reason: Nausea/Vomiting Phenol (Chloraseptic [place] 180 Ml Bot) 0 ml PO PRN PRN PRN Reason: Sore Throat Pioglitazone HCl (Actos) 30 mg PO DAILY [facility] Last Admin: 05/06/17 08:25 Dose: 30 mg Pramipexole Dihydrochloride (Mirapex) 0.25 mg PO TID [facility] Last Admin: 05/06/17 08:20 Dose: 0.25 mg Propranolol HCl (Inderal La) 80 mg PO DAILY [facility] Saccharomyces Boulardii (Florastor) 250 mg PO DAILY [facility] Last Admin: 05/06/17 08:15 Dose: 250 mg Senna (Senokot) 2 tab PO HSPRN PRN PRN Reason: Constipation Sodium Chloride ([place] Nasal [place] 0.65%) 0 ml EA NARE QIDPRN PRN PRN Reason: Nasal Congestion Trihexyphenidyl HCl (Artane) 2 mg PO BID-[facility] Last Admin: 05/06/17 08:23 Dose: 2 mg Zolpidem Tartrate (Ambien) 5 mg PO HSPRN PRN PRN Reason: Insomnia
[2017-05-06] MEDS: Propranolol HCl LA 80 MG CAP PO SCH (09:32)
[2017-05-06] MEDS: Vancomycin HCl 1.5 GM in Sodium Chloride 0.9% 250 ML 300 ML IVPB SCH ×2 (11:11→22:09)
--- NOTE | 2017-05-06 15:40 | EKG ---
Test Reason : Blood Pressure : / mmHG Vent. Rate : 064 BPM Atrial Rate : 076 BPM P-R Int : 000 ms QRS Dur : 154 ms QT Int : 412 ms P-R-T Axes : 000 -72 038 degrees QTc Int : 425 ms Atrial fibrillation with a competing junctional pacemaker Right bundle branch block Left anterior fascicular block Bifascicular block Abnormal ECG Confirmed by DIMAS BAUMAN D.O. ([id number]), story editor JARRED GRUBBS ([id number]) on 05/06/2017 3:39:39 PM Referred By: Confirmed By:DIMAS BAUMAN D.O.
[2017-05-06 21:20] LABS: Vancomycin, Trough 16.5 ug/mL
[2017-05-06] MEDS: Atorvastatin Calcium 10 MG TAB PO SCH (22:07)
[2017-05-07] MEDS: Piperacillin/Tazobactam 4.5 GM in Sodium Chloride 0.9% 100 ML IVPB SCH ×3 (03:00→15:36)
[2017-05-07] MEDS: Lisinopril 10 MG TAB PO SCH (07:55)
[2017-05-07] MEDS: Famotidine 20 MG TAB PO SCH (07:55)
[2017-05-07] MEDS: Aspirin 81 mg Enteric Coated Tablet PO SCH (07:55)
[2017-05-07] MEDS: Saccharomyces boulardii 250 MG CAP PO SCH (07:55)
[2017-05-07] MEDS: metFORMIN 500 MG TAB PO SCH (07:55)
--- NOTE | 2017-05-07 07:55 | PDOC.PN ---
- Subjective Encounter Start Date: 05/07/17 Encounter Start Time: 07:35 Patient seen and examined. No new complaints. No overnight events - Objective Resuscitation Status: Resuscitation Status FULL:Full Resuscitation MAR Reviewed: Yes Vital Signs & Weight: Vital Signs (12 hours) Temp Pulse Resp BP BP Pulse Ox 05/07/17 07:48 98.1 F 60 18 142/82 H 95 05/06/17 20:00 98.1 F 89 20 147/84 H 96 Weight Weight 339 lb 8.19 oz I&O: 05/06/17 05/07/17 05/08/17 06:59 06:59 06:59 Intake Total 850 2290 Balance 850 2290 Result Diagrams: 05/04/17 04:48 05/04/17 04:48 Additional Labs: Accuchecks 05/06/17 05/06/17 16:44 11:49 POC Glucose 84 109 Phys Exam - Physical Examination Constitutional: NAD HEENT: PERRLA, moist MMs, sclera anicteric Neck: no JVD, supple Respiratory: no wheezing, no rales, no rhonchi Cardiovascular: RRR, no significant murmur, no rub Gastrointestinal: soft, non-tender, no distention, positive bowel sounds Musculoskeletal: no edema, pulses present cellulitis improving Neurological: non-focal, normal sensation, moves all 4 limbs Psychiatric: normal affect, A&O x 3 Skin: no rash, normal turgor Dx/Plan (1) Cellulitis of right lower extremity Code(s): L03.115 - CELLULITIS OF RIGHT LOWER LIMB Status: Acute (2) Dental abscess Code(s): K04.7 - PERIAPICAL ABSCESS WITHOUT SINUS Status: Acute (3) Sepsis Code(s): A41.9 - SEPSIS, UNSPECIFIED ORGANISM Status: Acute (4) Diabetes type 2, controlled Code(s): E11.9 - TYPE 2 DIABETES MELLITUS WITHOUT COMPLICATIONS Status: Chronic (5) Dyslipidemia Code(s): E78.5 - HYPERLIPIDEMIA, UNSPECIFIED Status: Chronic (6) Hypertension Code(s): I10 - ESSENTIAL (PRIMARY) HYPERTENSION Status: Chronic (7) Morbid obesity with BMI of 40.0-44.9, adult Code(s): E66.01 - MORBID (SEVERE) OBESITY DUE TO EXCESS CALORIES; Z68.41 - BODY MASS INDEX (BMI) 40.0-44.9, ADULT Status: Chronic (8) Parkinson disease Code(s): G20 - PARKINSON'S DISEASE Status: Chronic - Plan 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 Review of Systems - Review of Systems ENT: negative: Ear Pain, Ear Discharge, Nose Pain, Nose Discharge, Nose Congestion, Mouth Pain, Mouth Swelling, Throat Pain, Throat Swelling, Other Respiratory: negative: Cough, Dry, Shortness of Breath, Hemoptysis, SOB with Excertion, Pleuritic Pain, Sputum, Wheezing Cardiovascular: negative: Chest Pain, Palpitations, Orthopnea, Paroxysmal Noc. Dyspnea, Edema, Light Headedness, Other Gastrointestinal: negative: Nausea, Vomiting, Abdominal Pain, Diarrhea, Constipation, Melena, Hematochezia, Other Genitourinary: negative: Dysuria, Frequency, Incontinence, Hematuria, Retention , Other Musculoskeletal: negative: Neck Pain, Shoulder Pain, Arm Pain, Back Pain, Hand Pain, Leg Pain, Foot Pain, Other - Medications/Allergies Allergies/Adverse Reactions: Allergies Allergy/AdvReac Type Severity Reaction Status Date / Time No Known Drug Allergies Allergy Verified 05/03/17 17:10 Medications: Current Medications Acetaminophen (Tylenol) 650 mg PO Q4H PRN PRN Reason: Headache/Fever or Pain Hydrocodone Bitart/Acetaminophen ([place] 5/325) 1 tab PO Q4H PRN PRN Reason: Moderate Pain (4-6) Al Hydroxide/Mg Hydroxide (Maalox) 30 ml PO Q6H PRN PRN Reason: Heartburn or Indigestion Artificial Tears (Tears Renewed 15ml Bottle) 0 drop EA EYE PRN PRN PRN Reason: Dry Eyes Aspirin (Ecotrin) 81 mg PO DAILY [facility] Last Admin: 05/06/17 08:22 Dose: 81 mg Atorvastatin Calcium (Lipitor) 10 mg PO HS [facility] Last Admin: 05/06/17 22:07 Dose: 10 mg Carbidopa/Levodopa (Sinemet 25-100) 2 tab PO TID [facility] Last Admin: 05/06/17 22:06 Dose: 2 tab Dextrose/Water (Dextrose 50%) 25 gm SLOW IVP PRN PRN PRN Reason: Hypoglycemia Enoxaparin Sodium (Lovenox) 40 mg SC 0900 [facility] Last Admin: 05/06/17 08:22 Dose: 40 mg Famotidine (Pepcid) 20 mg PO BID [facility] Last Admin: 05/06/17 22:06 Dose: 20 mg Glipizide (Glucotrol Xl) 5 mg PO QAM-[facility] Last Admin: 05/06/17 08:24 Dose: 5 mg Glucagon (Glucagon) 1 mg IM PRN PRN PRN Reason: Hypoglycemia Guaifenesin (Robitussin Sf) 200 mg PO Q4H PRN PRN Reason: Cough Hydralazine HCl (Apresoline) 10 mg SLOW IVP Q4H PRN PRN Reason: Systolic BP > 180 Dextrose/Water (D5w) 1,000 mls @ 0 mls/hr IV .Q0M PRN; As Directed PRN Reason: Hypoglycemia Piperacillin Sod/Tazobactam (Sod 4.5 gm/ Sodium Chloride) 100 mls @ 200 mls/hr IVPB 0200,0800,1400,2000 [facility] Last Admin: 05/07/17 03:00 Dose: 100 mls Vancomycin HCl 1.5 gm/ Sodium (Chloride) 300 mls @ 200 mls/hr IVPB 1000,2200 [facility] Last Admin: 05/06/17 22:09 Dose: 300 mls Insulin Human Lispro (Humalog) 0 units SC .MODERATE SLIDING SC PRN PRN Reason: Moderate Correctional Scale Insulin Human Lispro (Humalog) 0 units SC .BEDTIME SLIDING SC PRN PRN Reason: Bedtime Correctional Scale Lisinopril (Zestril) 10 mg PO DAILY [facility] Last Admin: 05/06/17 08:22 Dose: 10 mg Loperamide HCl (Imodium) 2 mg PO PRN PRN PRN Reason: Diarrhea/Loose Stools Loratadine (Claritin) 10 mg PO DAILYPRN PRN PRN Reason: Sinus Symptoms Loratadine (Claritin) 10 mg PO DAILYPRN PRN PRN Reason: Allergies Magnesium Hydroxide (Milk Of Magnesium) 30 ml PO DAILYPRN PRN PRN Reason: Constipation Metformin HCl (Glucophage) 500 mg PO BID-[facility] Last Admin: 05/06/17 16:06 Dose: 500 mg Mineral Oil/White Petrolatum (Eucerin Cream) 0 gm TOP BIDPRN PRN PRN Reason: Dry Skin Miscellaneous Medication (Pharmacy To Dose) 1 each IVPB PRN PRN PRN Reason: Pharmacy to dose Ondansetron HCl (Zofran Odt) 4 mg PO Q6H PRN PRN Reason: Nausea/Vomiting Ondansetron HCl (Zofran) 4 mg IVP Q6H PRN PRN Reason: Nausea/Vomiting Phenol (Chloraseptic [place] 180 Ml Bot) 0 ml PO PRN PRN PRN Reason: Sore Throat Pioglitazone HCl (Actos) 30 mg PO DAILY [facility] Last Admin: 05/06/17 08:25 Dose: 30 mg Pramipexole Dihydrochloride (Mirapex) 0.25 mg PO TID [facility] Last Admin: 05/06/17 22:17 Dose: 0.25 mg Propranolol HCl (Inderal La) 80 mg PO DAILY [facility] Last Admin: 05/06/17 09:32 Dose: 80 mg Saccharomyces Boulardii (Florastor) 250 mg PO DAILY [facility] Last Admin: 05/06/17 08:15 Dose: 250 mg Senna (Senokot) 2 tab PO HSPRN PRN PRN Reason: Constipation Sodium Chloride ([place] Nasal [place] 0.65%) 0 ml EA NARE QIDPRN PRN PRN Reason: Nasal Congestion Trihexyphenidyl HCl (Artane) 2 mg PO BID-[facility] Last Admin: 05/06/17 16:07 Dose: 2 mg Zolpidem Tartrate (Ambien) 5 mg PO HSPRN PRN PRN Reason: Insomnia
[2017-05-07] MEDS: Pramipexole Di-HCl 0.25 MG TAB PO SCH (07:57)
[2017-05-07] MEDS: Enoxaparin Sodium 40 MG/0.4 ML SYRINGE SC SCH (07:57)
[2017-05-07] MEDS: Carbidopa/Levodopa 25-100 mg Tablet PO SCH (07:58)
[2017-05-07] MEDS: Pioglitazone HCl 15 MG TAB PO SCH (08:00)
--- NOTE | 2017-05-07 08:48 | DIS ---
DATE OF ADMISSION: 05/03/2017 DATE OF DISCHARGE: 05/07/2017 PRIMARY CARE PHYSICIAN: Sukhjinder Groves M.D. DISCHARGE DISPOSITION: Home. PRIMARY DISCHARGE DIAGNOSES: 1. Sepsis due to cellulitis, resolved. 2. Right lower extremity cellulitis, improving. 3. Dental abscess. SECONDARY DISCHARGE DIAGNOSES: Chronic venous insufficiency, morbid obesity, Parkinson's disease, di abetes type 2, dyslipidemia, and hypertension. PRIMARY PROCEDURE/OPERATION: None. RADIOLOGICAL INVESTIGATION: Chest x-ray was normal. Facial bone CT scan showed lucency around secon d incisor canine teeth. SIGNIFICANT LABORATORY DATA: WBC 8.9, hemoglobin 12.7, platelets 122. Sodium 134, potassium 3.8, BU N 23, creatinine 0.98, calcium 8.4. Liver enzymes normal. Albumin 3.4. Urinalysis normal. Blood c ulture negative, influenza negative, urine culture negative. DISCHARGE MEDICATIONS: New medications; Keflex 500 mg t.i.d. for 15 days, doxycycline 100 mg twice d aily for 15 days, Florastor 250 mg p.o. daily for 15 days. Continue following medications: Aspirin 81 mg p.o. daily, Sinemet 25/100 two tablets t.i.d., [place] 180 mg daily, Glucotrol 5 mg p.o. daily, lisinopril 10 mg daily, metformin 500 mg p.o. b.i.d., Actos 30 mg p.o. daily, Mirapex 0.25 mg p.o. t.i.d., primidone 50 mg p.o. b.i.d., Inderal [place] 80 mg p.o. da destiny, Zocor 20 mg p.o. at bedtime, trihexyphenidyl 2 mg p.o. b.i.d. CONTRAINDICATIONS: None. CODE STATUS: FULL CODE. INPATIENT CONSULTANTS: None. ALLERGIES: No known drug allergy. DISCHARGE PLAN: Post hospital, the patient will follow up with primary care physician in 1 week. patient's primary care physician is advised to give referral to this patient to [facility]. HOSPITAL COURSE: A 71-year-old male with above-mentioned medical problem who had regular followup vi sit with dentist's office for work on his dental abscess, but over there, patient was found very weak . He was having high grade fever and he was very lethargic and that is why he was directed to the ER . In the emergency room, patient appeared to be septic. His blood pressure was running low and he w as having leukocytosis. His source of infection was suspected to be dental abscess and right lower e xtremity cellulitis. His facial bone CT scan showed lucency of second right maxillary incisor. We s poke with his dentist and he was not thinking that the only source of infection in dental abscess, bu t with that he recommended to treat cellulitis as well as other source of infection. We did not find any other source of infection other than cellulitis and dental abscess. He will follow up with his dentist for further treatment on his teeth. His dentist recommended to do as an outpatient basis. We provided patient education to keep her lower extremity elevated, elastic stockings and antibiotic for 15 more days for oral antibiotic therapy. Patient will need the [facility] follow up for venou s insufficiency. The patient is advised to lose weight. The patient will follow up with primary care physician. At this point, patient is medically stable f or discharge. On discharge, we are resuming all his previous medications and initially we hold that his blood pressure medication for low blood pressure, but then we restarted all his home medication. The patient is seen and examined at bedside today. Please see my progress note from today for furthe r details. The patient's education about cellulitis, prevention and venous insufficiency, patient ed ucation was given to him.
[2017-05-07] MEDS: Propranolol HCl LA 80 MG CAP PO SCH (09:58)
[2017-05-07] MEDS: Vancomycin HCl 1.5 GM in Sodium Chloride 0.9% 250 ML 300 ML IVPB SCH (10:59)
[2017-05-07 11:15] VITALS: BP 146/81; TEMP 98.2
== END 2017-05-07 15:45 | disposition home or self-care (01) | DRG 872 ==
LOC: ERS 11:13 → T4-A 14:46
PROVIDERS: ADMIT Internal Medicine; ATTEND Internal Medicine
DX: A41.9 Sepsis, unspecified organism (principal); G20 Parkinson's disease; L03.115 Cellulitis of right lower limb; Z68.41 Body mass index [BMI] 40.0-44.9, adult; K04.7 Periapical abscess without sinus; Z98.42 Cataract extraction status, left eye; Z90.49 Acquired absence of other specified parts of digestive tract; E66.01 Morbid (severe) obesity due to excess calories; E78.5 Hyperlipidemia, unspecified; I87.2 Venous insufficiency (chronic) (peripheral); I10 Essential (primary) hypertension; E11.9 Type 2 diabetes mellitus without complications; Z85.72 Personal history of non-Hodgkin lymphomas
CPT/HCPCS: 36415; 36416; 70487; 71010; 80053; 80202; 81003; 83605; 85025; 87040; 87086; 93005; 94760; 96361; 96365; G8978-GP-CL; G8979-GP-CJ; G8987-GO-CI; G8988-GO-CI; G8989-GO-CI; J1650; J2543; J3370; J7050